=== PATIENT | female | born 2000 | race Caucasian/White ===

== ENCOUNTER 2022-12-02 14:17 | Emergency (ER) | payer MEDICAID ==
[~2022-12-02] VITALS: Ht 157.5 cm; Wt 62.6 kg
[2022-12-02 14:32] VITALS: BP 125/82; PULSE 80; RESP 18; TEMP 98.6; O2SAT 99
--- NOTE | 2022-12-02 14:43 | NUR ---
PT AMBULATED TO BED 4
[2022-12-02] MEDS ORDERED: IBUPROFEN 600 MG TAB PO ONE (14:50)
[2022-12-02] MEDS ORDERED: BACITRACIN OINT 500 UNITS/GM PKT TP ONE (14:50)
--- NOTE | 2022-12-02 15:27 | NUR ---
animal bite report faxed to [phone] . fax confirmed completed.
[2022-12-02] MEDS ORDERED: AMOX1TAB8 PO (15:28)
[2022-12-02] MEDS ORDERED: IBUP-2213 PO (15:28)
[2022-12-02 15:35] VITALS: BP 120/82; PULSE 80; RESP 18; TEMP 98.6; O2SAT 99
--- NOTE | 2022-12-02 15:35 | NUR ---
Patient discharged with v/s stable. Written and verbal after care instructions FOR ANIMAL BITE given and explained. Patient alert, oriented and verbalized understanding of instructions. Ambulatory with steady gait. All questions addressed prior to discharge. ID band removed. Patient advised to follow up with PMD. Rx of AMOXICILLIN/POTASSIUM CLAV AND IBUPROFEN given. Opportunity to ask questions provided and answered. WORK NOTE PROVIDED
--- NOTE | 2022-12-02 15:36 | NUR ---
The patient's care was reviewed and supervised by Lexie Garcia, RN, RN.
== END 2022-12-02 15:35 | disposition home or self-care (01) ==
LOC: MED 14:17
DX: S61.231A Puncture wound without foreign body of left index finger without damage to nail, initial encounter (principal); W55.01XA Bitten by cat, initial encounter; Y93.89 Activity, other specified; Y92.89 Other specified places as the place of occurrence of the external cause; Y99.8 Other external cause status
CPT/HCPCS: 90471; 90715; 99283